=== PATIENT | female | born 1965 | race Caucasian/White ===

== ENCOUNTER 2023-05-29 06:13 | Day surgery (SDC) | payer BC, SELFPAY ==
[2023-05-29 07:50] VITALS: BMI 26.8
[2023-05-29 07:54] VITALS: BMI 26.8
[2023-05-29 07:55] VITALS: BP 145/71
[2023-05-29 10:20] VITALS: BP 115/69
[2023-05-29 10:35] VITALS: BP 126/84
[2023-05-29 10:50] VITALS: BP 125/74
== END 2023-05-29 10:55 | disposition home or self-care (01) ==
LOC: GI 06:13
PROVIDERS: ATTENDING PHYSICIAN Internal Medicine Gastroenterology; FAMILY PHYSICIAN Family Medicine
DX: D12.0 Benign neoplasm of cecum (principal); K64.0 First degree hemorrhoids
CPT/HCPCS: 45390; 88305

== ENCOUNTER 2023-11-20 06:39 | Day surgery (SDC) | payer BC, SELFPAY ==
[2023-11-20 12:12] VITALS: BMI 26.8
[2023-11-20 12:13] VITALS: BP 134/59; BMI 26.8
[2023-11-20 14:33] VITALS: BP 122/63
[2023-11-20 14:45] VITALS: BP 129/78
[2023-11-20 14:54] VITALS: BP 135/69
== END 2023-11-20 15:00 | disposition home or self-care (01) ==
LOC: GI 06:39
PROVIDERS: ATTENDING PHYSICIAN Internal Medicine Gastroenterology
DX: Z12.11 Encounter for screening for malignant neoplasm of colon (principal); K64.0 First degree hemorrhoids; Z86.0101 Personal history of adenomatous and serrated colon polyps; Z98.890 Other specified postprocedural states
CPT/HCPCS: 45388; 45380; 88305